=== PATIENT | male | born 1980 | race Caucasian/White ===

== ENCOUNTER 2021-05-18 21:50 | Emergency (ER) | payer OTHER, SELFPAY ==
--- NOTE | ~2021-05-18 | CT_ITS ---
EXAMINATION: CT OF THE HEAD AND CERVICAL SPINE WITHOUT CONTRAST CLINICAL INFORMATION: Alcohol. Fall. Chin laceration. Head injury. Rule out bleed or fracture. Rule out fracture. COMPARISON: None. TECHNIQUE: Contiguous axial imaging was performed from the vertex to the thoracic inlet, through the head and cervical spine, without intravenous administration of contrast. Coronal and sagittal reformatted images through the cervical spine were obtained on the technologists workstation. This CT examination was performed using dose optimization techniques as appropriate, variously including the following: *Automated exposure control *Adjustment of mA and/or kV according to patient size (this includes techniques or standardized protocols for targeted exams where dose is matched to indication/reason for exam; i.e. extremities or head) *Use of iterative reconstruction technique FINDINGS: Head: No acute intracranial hemorrhage. No extra-axial fluid collection. Riley-white matter differentiation is preserved without evidence of acute large vessel territory ischemia. Symmetric, concordant ventricles and sulci; no hydrocephalus. No mass effect or midline shift. There is no abnormal attenuation within the brain parenchyma. The osseous structures and soft tissues are normal. No acute sinusitis. Cervical spine: Normal pre-vertebral soft tissues. No fracture seen. Straightening of the normal cervical lordosis but no traumatic malalignment. Disk heights are maintained. Thyroid homogeneous with no nodules seen. Lung apices are clear. No cervical lymphadenopathy, mass, or fluid collection. CT/CT cervical spine wo con IMPRESSION: No acute intracranial pathology. No acute osseous abnormality of the cervical spine.
--- NOTE | ~2021-05-18 | CT_ITS ---
EXAMINATION: CT OF THE HEAD AND CERVICAL SPINE WITHOUT CONTRAST CLINICAL INFORMATION: Alcohol. Fall. Chin laceration. Head injury. Rule out bleed or fracture. Rule out fracture. COMPARISON: None. TECHNIQUE: Contiguous axial imaging was performed from the vertex to the thoracic inlet, through the head and cervical spine, without intravenous administration of contrast. Coronal and sagittal reformatted images through the cervical spine were obtained on the technologists workstation. This CT examination was performed using dose optimization techniques as appropriate, variously including the following: *Automated exposure control *Adjustment of mA and/or kV according to patient size (this includes techniques or standardized protocols for targeted exams where dose is matched to indication/reason for exam; i.e. extremities or head) *Use of iterative reconstruction technique FINDINGS: Head: No acute intracranial hemorrhage. No extra-axial fluid collection. Riley-white matter differentiation is preserved without evidence of acute large vessel territory ischemia. Symmetric, concordant ventricles and sulci; no hydrocephalus. No mass effect or midline shift. There is no abnormal attenuation within the brain parenchyma. The osseous structures and soft tissues are normal. No acute sinusitis. Cervical spine: Normal pre-vertebral soft tissues. No fracture seen. Straightening of the normal cervical lordosis but no traumatic malalignment. Disk heights are maintained. Thyroid homogeneous with no nodules seen. Lung apices are clear. No cervical lymphadenopathy, mass, or fluid collection. CT/CT head/brain wo con IMPRESSION: No acute intracranial pathology. No acute osseous abnormality of the cervical spine.
[2021-05-18 22:01] VITALS: BP 140/92; BP 146/83; PULSE 80; PULSE 82; RESP 18; TEMP 36.8; O2SAT 96; O2SAT 98; BMI 28.1
--- NOTE | 2021-05-18 23:17 | ED.GENADULT ---
HPI - General Adult General Chief complaint: ETOH/Substance Use Stated complaint: lac due to fall Time Seen by Provider: 05/18/21 22:11 Source: patient Mode of arrival: EMS Limitations: no limitations History of Present Illness HPI narrative: 40-year-old male who presents emergency department for evaluation of injuries from a fall down stairs at home. Patient admits to drinking alcohol this evening. He states that he tripped down 1 or 2 stairs in his house and landed on his chin. He denied any loss of consciousness. He did sustain a laceration to his chin and is bleeding. At the time of evaluation he denied headache, neck pain, chest pain, abdominal pain, nausea, vomiting, numbness or weakness. The patient does appear to be acutely intoxicated. He states that his tetanus status is up-to-date. Related Data Allergies Allergy/AdvReac Type Severity Reaction Status Date / Time amoxicillin Allergy Unknown Verified 06/23/16 00:00 Review of Systems Review of Systems: Yes all other systems are reviewed and are negative [facility] Past Medical History [facility] Narrative: Past medical history: None . Social history: Patient states that he is . He does admit to drinking alcohol this evening. He denies tobacco and drug use. Social History Social History Advance Directives: No Advance Directives Information Provided: Yes Physical Exam Vital Signs: Vital Signs: Last Vital Signs Temp 98.3 F 05/18/21 22:01 Pulse 82 05/18/21 22:01 Resp 18 05/18/21 22:01 BP 146/83 H 05/18/21 22:01 Pulse Ox 96 05/18/21 22:01 Body Mass Index 28.1 Const: Other: Awake, alert, male patient, he does appear to be acutely intoxicated he removed the see spine collar and requested that I do not put it back on. He is actively bleeding from a laceration to his chin. Orientation/consciousness: oriented to person and oriented to place HENMT: Head: Yes normal to inspection, Yes normocephalic and Yes atraumatic Ears: external ears normal General nose exam: Normal external nose present Face and sinus: Yes other (2.0 full skin thickness laceration to chin, actively bleeding) Mouth: Normal oral and palatal mucosa present Throat: Yes posterior oropharynx normal Eyes: General: appearance normal, both eyes and all related structures Pupils: Equal, round and reactive pupils present Neck: Neck: Yes normal visual inspection, Yes no lymphadenopathy, Yes trachea midline and Yes supple Chest: Chest palpation & inspection: normal inspection of the chest and normal palpation of entire chest wall Resp: Effort & Inspection: normal respiratory effort and able to speak in complete sentences Auscultation: clear to auscultation bilaterally Cardio: Rate: regular rate Rhythm: regular rhythm Heart sounds: S1 normal heart sound present, S2 normal heart sound present and no murmurs GI: Inspection: Yes normal to inspection Palpation (GI): Soft to palpation, nontender and no guarding Auscultation: normal bowel sounds : General: Yes no CVA tenderness Back/Spine/Pelvis: Back: no CVA tenderness Skin: General skin exam: no rashes or lesions noted Neuro: General: oriented to person and oriented to place Cranial nerves: Yes CN's II-XII intact bilaterally and Yes Equal, round and reactive pupils present Cognition (Neuro): normal cognition Motor exam (neuro): 5/5 motor strength present throughout Extrem: General: Yes normal to inspection Psych: Appearance: grossly normal Speech and movement: Other speech and movement exam findings present (Psych) (Speech is slurred secondary to alcohol intoxication) Affect: normal affect Attitude: cooperative Thought process: Normal thought process present Thought content: Normal thought content present Course Course Course Narrative: 40-year-old male who presents emergency department for evaluation fall down 1 or 2 stairs at home with injury to his chin. Patient does admit to drinking alcohol this evening. Patient does appear to be acutely intoxicated he did have a 2.0 cm laceration to his chin which was actively bleeding. Given his acute intoxication and his fall, I did order a CT scan of his head and cervical spine. These are interpreted as normal by the radiologist with no acute findings. The patient's laceration was repaired by me with for 4.0 Ethilon sutures x4 sutures. Patient tolerated the procedure well. The patient will need to get a ride home since he is intoxicated. I advised the patient to call his for a friend in order to get a ride home. The patient was discharged to home with verbal and printed instructions. Procedures Laceration 2.0 chin laceration: Site: face (Chin) Side (If applicable): right Description: linear Depth: simple, single layer Local Anesthetic: lidocaine 1% and with epi Amount of anesthesia used (mL): 6 Pre-repair: wound explored Skin layer closed with: nylon Size (cm): 4-0 Number of sutures: 4 Technique: simple, interrupted Discharge Plan Discharge Clinical Impression: Simple laceration of chin Fall Qualifiers: Encounter type: initial encounter Qualified Code(s): W19.XXXA - Unspecified fall, initial encounter Alcohol intoxication Qualifiers: Complication of substance-induced condition: uncomplicated Qualified Code(s): F10.920 - Alcohol use, unspecified with intoxication, uncomplicated Patient Disposition: Home, Self-Care Instructions: Alcohol Intoxication (ED), Laceration (ED) Additional Instructions: We did a CT scan of your head and her neck, there is no skull fracture, bleeding in the brain or fracture of your neck noted. You had a a 2.0 cm laceration to your chin which was repaired with 4 nylon sutures. The sutures need to be removed in 7-10 days by your doctor. Apply bacitracin twice a day to the wound until the sutures removed. Watch for signs of infection which would include redness, swelling, drainage of pus, red streaks going away from the wound, increased pain. Follow-up with your doctor in 2 days. Please return to the emergency department if your symptoms get worse or if you develop any symptoms that are concerning to you.
--- NOTE | 2021-05-18 23:29 | PC.NURSE ---
patient removed c-colar and began walking around angrily, requesting to be discharged doctor informed will continue to monitor
== END 2021-05-18 23:39 | disposition home or self-care (01) ==
PROVIDERS: Emergency Provider Emergency Medicine Emergency Medical Services
DX: S01.81XA Laceration without foreign body of other part of head, initial encounter (principal); F10.920 Alcohol use, unspecified with intoxication, uncomplicated; G44.309 Post-traumatic headache, unspecified, not intractable; M54.2 Cervicalgia; Y90.9 Presence of alcohol in blood, level not specified; W10.9XXA Fall (on) (from) unspecified stairs and steps, initial encounter; Y93.9 Activity, unspecified; Y92.9 Unspecified place or not applicable; Y99.9 Unspecified external cause status
CPT/HCPCS: 12011; 70450; 72125; 99283; 99284